=== PATIENT | male | born 1955 | race Caucasian/White ===

== ENCOUNTER → 2021-01-16 | Outpatient (CLI) | payer OTHER ==
[~2021-01-16] MED LIST: METHACHOLINE KIT (J7674) INH ONE
--- NOTE | 2021-01-16 13:02 | PFTRPT ---
Height: 64.50 Inches Weight: 200.00 Lbs BSA: 1.97 Diagnosis: J43.9 DATE: 01/16/2021 ORDERED BY: Dr. Scooby Strickland. QUALITY: Study of excellent technical quality. PROCEDURE: Under protocol, methacholine was administered. Even after a maximal dose of 25 mg or 188.875 CDUs, no provocation dose ever achieved. IMPRESSION: Negative methacholine challenge study. MTDD
== END ==
LOC: M CARPUL 11:53
PROVIDERS: ATTEND Family Medicine
DX: J43.9 Emphysema, unspecified (principal)
CPT/HCPCS: 94070; J7674